=== PATIENT | male | born 1965 | race African-American/Black ===

== ENCOUNTER 2016-08-29 05:11 | Emergency (ER) | payer MEDICAID ==
[~2016-08-29] VITALS: Ht 172.7 cm; Wt 89.5 kg
[2016-08-29] MEDS ORDERED: MORPHINE SULFATE 4 MG/ML CPJ (NOT FOR IM USE) IV ONE (06:15)
[2016-08-29] MEDS ORDERED: ASPIRIN 325MG EC TABLET PO ONE (06:15)
[2016-08-29] MEDS ORDERED: NITROGLYCERIN 0.4MG TABLET SL SL ONE (06:15)
[2016-08-29 06:24] LABS: EOSINOPHILS % 2.8 % (0.0-5.0); HEMATOCRIT. 40.5 % (42.0-52.0); LYMPHOCYTES % 29.9 % (20.0-50.0); MEAN CORPUSCULAR HEMOGLOBIN 30.8 pg (28.0-32.0); MEAN CORPUSCULAR HGB CONC 34.7 g/dL (31.0-37.0); MEAN CORPUSCULAR VOLUME 88.8 fL (80.0-94.0); MEAN PLATELET VOLUME 8.2 fl (7.4-10.4); MONOCYTES % 13.4 % (2.0-8.0); NEUTROPHILS % 52.9 % (40.0-76.0); PLATELET 242 x1000/uL (130-400); RED BLOOD CELL COUNT 4.56 mill/uL (4.7-6.1); RED CELL DISTRIBUTION WIDTH 13.6 % (11.6-14.6); WHITE BLOOD COUNT 10.3 x1000/uL (4.5-11.0)
[2016-08-29 06:43] LABS: ALANINE AMINOTRANSFERASE 24 IU/L (13-61); ALBUMIN 3.6 g/dL (3.4-5.0); ANION GAP 11; CALCIUM 8.8 mg/dL (8.5-10.1); CARBON DIOXIDE 28 mEq/L (21-32); CHLORIDE 106 mEq/L (98-107); INDEX HEMOLYSI 1 (1-3); INDEX ICTERIC 1 (1-4); INDEX LIPEMIC 1 (1-3); LIPASE 139 IU/L (73-393); TROPONIN I < 0.02 ng/mL (0.00-0.04); UREA NITROGEN BLOOD 18 mg/dL (7-21); eGFR > 60 mL/min (>60)
[2016-08-29 06:48] LABS: PARTIAL THROMBOPLASTIN TIME 31.7 sec (24.0-34.0); PROTHROMBIN TIME 10.8 sec
[2016-08-29 08:44] VITALS: BP 147/84
== END 2016-08-29 09:12 | disposition left against medical advice (07) ==
LOC: ER 05:27
DX: R07.89 Other chest pain (principal); F17.200 Nicotine dependence, unspecified, uncomplicated; F12.10 Cannabis abuse, uncomplicated
CPT/HCPCS: 36415; 71010; 80053; 83690; 84484; 85025; 85610; 85730; 93005; 96374; 99285; J2270; Z7610

== ENCOUNTER 2018-09-03 17:42 | Emergency (ER) | payer BC, MEDICAID ==
[~2018-09-03] VITALS: Ht 172.7 cm; Wt 90.0 kg
[2018-09-04] MEDS ORDERED: ACETAMINOPHEN 325MG TABLET PO ONE
[2018-09-04 00:21] LABS: BASOPHILS % 0.8 % (0.0-2.0); EOSINOPHILS % 4.1 % (0.0-5.0); HEMATOCRIT. 41.2 % (42.0-52.0); HEMOGLOBIN. 13.8 g/dL (14.0-18.0); MEAN CORPUSCULAR HEMOGLOBIN 30.1 pg (28.0-32.0); MEAN CORPUSCULAR VOLUME 89.7 fL (80.0-94.0); MEAN PLATELET VOLUME 7.8 fl (7.4-10.4); MONOCYTES % 8.8 % (2.0-8.0); NEUTROPHILS % 33.3 % (40.0-76.0); PLATELET 251 x1000/uL (130-400); RED BLOOD CELL COUNT 4.59 mill/uL (4.7-6.1); RED CELL DISTRIBUTION WIDTH 13.6 % (11.6-14.6)
[2018-09-04 00:26] LABS: CHLORIDE 108 mEq/L (98-107)
[2018-09-04 03:20] VITALS: BP 132/84
== END 2018-09-04 03:24 | disposition home or self-care (01) ==
LOC: ER 18:00
DX: R07.89 Other chest pain (principal); R05 Cough; F12.10 Cannabis abuse, uncomplicated
CPT/HCPCS: 36415; 71045; 80053; 83690; 84484; 85025; 93005; 99284; Z7610